=== PATIENT | female | born 1995 | race Caucasian/White ===

== ENCOUNTER 2025-07-04 09:23 | Emergency (ER) | payer MEDICAID, SELFPAY ==
[2025-07-04 09:41] VITALS: BP 117/79; PULSE 67; RESP 18; TEMP 36.4; O2SAT 96
--- NOTE | 2025-07-04 09:45 | XR_ITS ---
Examination: CT abdomen and pelvis without contrast. Coronal 3-D reconstructions. Sagittal 2-D reconstructions. Date and time of exam:July 04, 2025 1222 hours INDICATIONS: Dysuria right-sided flank pain nausea beginning 2 days ago. CTDI: vol (mGy): 6.51 DLP: (mGycm): 15 Technique: Axial images of the abdomen have been obtained, 3 mm slice thickness Intravenous contrast material has not been administered. Low dose protocols were performed. One or more of the following dose reduction techniques were used; automated exposure control, adjustment of the mA and/or KV according to patient size, use of iterative reconstruction technique. Findings: No focal liver or splenic lesions Cholelithiasis Gallbladder wall appears mildly thickened. No pancreatic or adrenal mass Mild right hydronephrosis 4.6 mm right ureterovesical junction calculus No left hydronephrosis No bowel obstruction Normal appendix No bladder mass IMPRESSION: Cholelithiasis, recommend hepatobiliary sonography follow-up Mild right hydronephrosis, 4.6 mm right ureterovesical junction calculus
--- NOTE | 2025-07-04 09:45 | PD.EDRME ---
Rapid Medical Screening Exam RME Arrival date/time: 07/04/25 09:23 30-year-old female with no known medical history presents to the emergency room with a chief complaint of dysuria, right-sided flank pain, nausea x 2 days I have greeted and performed a focused initial assessment of this patient. A comprehensive ED assessment and evaluation of the patient, analysis of all test results, and completion of the medical decision making process will be conducted by additional ED providers. Chief Complaint: General Adult/Misc Complain Time Seen by Provider: 07/04/25 09:32 Vital signs: Vital Signs Temperature 97.6 F 07/04/25 09:41 Pulse Rate 67 07/04/25 09:41 Respiratory Rate 18 07/04/25 09:41 Blood Pressure 117/79 07/04/25 09:41 Pulse Oximetry (%) 96 07/04/25 09:41 Oxygen Delivery Method Room Air 07/04/25 09:41 Vital signs reviewed by provider: Yes
[2025-07-04 10:18] LABS: Basophils # (Auto) 0.1 Thou/mm3 (0.0-0.2); Basophils % (Auto) 0 % (0-2.5); Eosinophils # (Auto) 0.0 Thou/mm3 (0.0-0.5); Eosinophils % (Auto) 0 % (0-10); Hematocrit 34.0 % (36.0-46.0); Hemoglobin 11.0 g/dL (12.0-16.0); Immature Granulocytes Auto 0.04 Thou/mm3 (0.00-0.00); Lymphocytes # (Auto) 1.1 Thou/mm3 (1.0-4.8); Lymphocytes % (Auto) 8 % (10-50); Mean Corpuscular HGB Conc 32.4 g/dl (31.0-37.0); Mean Corpuscular Hemoglobin 28.6 pg (25.0-35.0); Mean Corpuscular Volume 88 fL (80-100); Monocytes # (Auto) 0.6 Thou/mm3 (0.0-0.8); Monocytes % (Auto) 5 % (0-12); Neutrophils # (Auto) 11.4 Thou/mm3 (1.8-7.7); Neutrophils % (Auto) 86 % (37-80); Nucleated Red Blood Cell # 0.00 Thou/mm3 (0.00-0.00); Nucleated Red Blood Cell % 0 /100 WBC (0); Platelet Count 229 Thou/mm3 (140-440); RDW Standard Deviation 39.0 fL (36.4-46.3); Red Blood Count 3.85 Miln/mm3 (4.00-5.20); White Blood Count 13.2 Thou/mm3 (3.6-11.0)
[2025-07-04 10:41] LABS: Alanine Aminotransferase 10 U/L (10-49); Albumin, Serum 4.7 gm/dL (3.5-5.0); Albumin/Globulin Ratio 2.2 (1.2-2.2); Alkaline Phosphatase 63 U/L (46-116); Anion Gap 11 (7-16); Aspartate Amino Transferase 16 U/L (0-34); BUN/Creatinine Ratio 18 Ratio (12-20); Bilirubin,Total 0.7 mg/dL (0.3-1.2); Blood Urea Nitrogen 9 mg/dL (9-23); Calcium 9.4 mg/dL (8.3-10.6); Calcium (Corrected) 9.4 mg/dL (8.5-10.1); Carbon Dioxide 25.4 mMol/L (20.0-31.0); Chloride 107 mMol/L (98-107); Creatinine (Component) 0.5 mg/dL (0.6-1.3); Estimated Creatinine Clearance 146.9 mL/min (>60); Globulin 2.1 gm/dL (2.3-3.5); Glucose 120 mg/dL (74-106); Lipase 23 U/L (12-53); Osmolality,Calculated 284 (275-295); Potassium 3.6 mMol/L (3.4-5.1); Sodium 143 mMol/L (136-145); Total Protein 6.8 gm/dL (5.7-8.2); eGFR > 60 See Note
[2025-07-04 11:04] LABS: Collection Type, Urine Clean Catch; WBC,Urine 0 /hpf (0-5)
--- NOTE | 2025-07-04 11:18 | EDNOTE_ITS ---
ED General RME/HPI General Chief complaint: General Adult/Misc Complain Stated complaint: R) FLANK PAIN Time Seen by Provider: 07/04/25 09:32 Arrival date/time: 07/04/25 09:23 CC: Right flank pain nausea vomiting diarrhea HPI abrupt onset 930 this morning no prior history of similar events denies any fever, no allergies no medicines. Took Aleve without relief. 2 episodes of diarrhea 2 episodes of vomiting currently nauseated but no active vomiting. RME / HPI RME / HPI narrative: 07/04/25 09:23 30-year-old female with no known medical history presents to the emergency room with a chief complaint of dysuria, right-sided flank pain, nausea x 2 days I have greeted and performed a focused initial assessment of this patient. A comprehensive ED assessment and evaluation of the patient, analysis of all test results, and completion of the medical decision making process will be conducted by additional ED providers. Related Data Home Medications ?Medication ?Instructions ?Recorded ?Confirmed prenat.vits,hossein,[id number] 1 tab PO QDAY 04/18/19 04/20/21 Previous Rx's ?Medication ?Instructions ?Recorded docusate sodium 100 mg capsule 100 mg PO BID postpartu m 30 days 06/20/21 (Colace) #60 caps ibuprofen 600 mg tablet (IBU) 600 mg PO Q6H PRN fever or pain 30 06/20/21 days #60 tabs ketorolac 10 mg tablet 10 mg PO Q8H #10 tabs Allergies Allergy/AdvReac Type Severity Reaction Status Date / Time No Known Allergies Allergy Verified 04/20/21 12:06 Review of Systems Review of Systems Narrative Review of Systems: GEN: No fever, no chills, no weight loss EYES: No discharge, no visual changes, no pain HEENT: No ear pain, no congestion, no sore throat PULM: No shortness of breath, no cough, no congestion CV: No chest pain, no dyspnea on exertion, no palpitations GI: + nausea, + vomiting, + diarrhea, + pain, no constipation : No frequency, no urgency, no dysuria MUSC/SKEL: No joint pain, no back pain SKIN: No rash PSYCH: No hallucinations, no depression HEME/LYMPH: No easy bleeding or bruising tendencies NEURO: No weakness, no headache Past Medical History Past Medical History NEUROLOGIC: Negative Neurological Disorders or Seizures CARDIAC: Negative Cardiac Disorders or Congestive Heart Failure RESPIRATORY: Negative Chronic Obstructive Pulmonary Disease (COPD) GASTROINTESTINAL: Negative Gastrointestinal Disorders or Hepatitis GENITOURINARY: Negative Genitourinary Disorders or Renal Disease MUSCULOSKELETAL: Negative Musculoskeletal Disorders ENDOCRINE: Negative Endocrine Disorders, Diabetes Mellitus Type 1 or Diabetes Mellitus Type 2 HEMATOLOGIC: Negative Blood Disorders PSYCHO/SOCIAL: Positive Anxiety OTHER HISTORY: Positive Hospitalization; Negative Autoimmune Disease, Blood Transfusions, Anesthesia Reactions, Human Immunodeficiency Virus (HIV), Chicken Pox, Measles, Mumps, Rubella ([place] Measles), Pertussis or Clostridium Difficile Family History FAMILY HISTORY: Positive Family Psychiatric Problems, Family Cancer and Family Surgery; Negative Family Respiratory Disorders, Family Cardiac Disorders, Family Gastrointestinal Problems or Family Anesthesia Reaction Surgical History SURGICAL: Positive Section Social History SMOKING STATUS: Never smoker ED Exam Narrative Physical exam: [General: Obese in mild discomfort but not in any acute distress Head normocephalic HEENT: Within acceptable limits Neck is supple nontender Chest equal chest rise nontender to palpation Respiratory: Clear to auscultation no wheezes crackles or rubs CV: Rate rhythm is regular no murmurs rubs or clicks Abdomen is distended secondary to body habitus soft nontender no masses positive bowel sounds all 4 quadrants Back: No right or left CVA tenderness no spinous process tenderness from cervical spine thoracic and lumbar spine Skin: Intact no petechiae rash induration ulceration or crepitus Extremities: Moving all extremity against resistance cap refill less than 2 seconds neurosensory intact Neuro: Awake alert oriented x3 Glascow coma 15 no focal deficits] Course Quality Measures none Orders Category Date Time Status Saline [Insert IV] NOW Care 07/04/25 11:[address] abdomen pelvis wo con Stat Exams 07/04/25 09:45 Completed CBC Stat Lab 07/04/25 10:05 Completed CMP [Comprehensive Metabolic Panel] Stat Lab 07/04/25 10:05 Completed HCG Qualitative,Urine Stat Lab 07/04/25 11:00 Completed Lipase Stat Lab 07/04/25 10:05 Completed UA [Urinalysis] Stat Lab 07/04/25 11:00 Completed Urine Culture Stat Lab 07/04/25 11:00 Received Ketorolac Inj [Toradol Inj] Med 07/04/25 11:14 Discontinued 15 mg IVP X1 ONE Ondansetron Inj [Zofran Inj] Med 07/04/25 11:14 Discontinued 4 mg IVP X1 ONE Sodium Chloride 0.9% 1000 ml [Ns] 1,000 ml Med 07/04/25 11:14 Discontinued IV 999 mls/hr Vital Signs Vital signs: Vital Signs Temperature 97.6 F 07/04/25 09:41 Pulse Rate 67 07/04/25 09:41 Respiratory Rate 18 07/04/25 09:41 Blood Pressure 117/79 07/04/25 09:41 Pulse Oximetry (%) 96 07/04/25 09:41 Oxygen Delivery Method Room Air 07/04/25 09:41 Discharge Plan Plan Patient Disposition: HOME (Self Care) Prescriptions/Referrals Prescriptions/Med Rec: New ketorolac 10 mg tablet 10 mg PO Q8H Qty: 10 0RF Rx Instructions: maximum total duration of 5 days from all oral, intranasal, or parenteral formulations No Action prenat.vits,hossein,[id number] tablet 1 tab PO QDAY docusate sodium [Colace] 100 mg capsule 100 mg PO BID MDD 2 30 Days Qty: 60 1RF ibuprofen [IBU] 600 mg tablet 600 mg PO Q6H MDD 4 PRN (Reason: fever or pain) 30 Days Qty: 60 1RF Referrals: Celso Munson MD [Physician, Nephrology] - In 1 week Bert Jerome MD [Primary Care Provider, Family Practice] - In 1 week Problem List Clinical Impression: Urolithiasis, Hydroureter Patient/Caregiver Discharge Instructions Education Materials: ED Kidney Stone Undescended No ... Additional Instructions: Take the medication as prescribed drink plenty of water, follow-up with urologist if there is worsening of symptoms return to the emergency room for reevaluation. Print Language: Upper Sorbian Stand Alone Forms: Charmaine Award Info., Patient Portal Info Letter, Work/School Release PA/G[employer]OLINE TRUCK OPERATOR Supervising Physician PA/GASOLINE TRUCK OPERATOR Supervising Physician: Olaf Mosley ENP [facility] Clinical Information Provided by patient Medical Records Reviewed [facility] Meds/Rx Considered, not Ordered None Labs/Rad/Tests considered, not Ordered None Chronic Illness/Social Conditions which may negatively complicate care or outcome(s)-explain: None or not applicable EKG EKG not done Lab Interpretation Lab(s) interpretation(s): CBC shows a mild leukocytosis of 13.2 H&H of 11.0 and 34.0 respectively. No thrombocytopenia CMP shows no significant electrolyte imbalances glucose mildly elevated 120 no transaminitis or T. bili elevation. Imaging Provider imaging interpretation(s): CT shows the patient has a 4.5 mm stone in the right UVJ with mild hydro-. Radiology reports / interpretation(s): Patient got considerable relief of the ketorolac at this time comfortable discharging her pain home she can follow-up with nephrology take the medicines drink plenty of water. Medication Administration(s) Medication Administration History Discontinued Medications Sodium Chloride (Ns) 1,000 mls @ 999 mls/hr IV .Q1H1M ONE Stop: 07/04/25 12:14 Last Infusion: 07/04/25 12:32 Dose: Infused Documented By: Admin: 07/04/25 11:31 Dose: 999 mls/hr Documented By: EF Ketorolac Tromethamine (Ketorolac Inj 30 Mg/Ml Vial) 15 mg IVP X1 ONE Stop: 07/04/25 11:15 Last Admin: 07/04/25 11:48 Dose: 15 mg Documented By: MAUDE Ondansetron HCl (Ondansetron Inj 2 Mg/Ml Inj 2 Ml) 4 mg IVP X1 ONE; Protocol Stop: 07/04/25 11:15 Last Admin: 07/04/25 11:31 Dose: 4 mg Documented By: EF
[2025-07-04] MEDS: SODIUM CHLORIDE 0.9% 1000 ML 1,000 ML 999 ML IV (11:31)
[2025-07-04] MEDS: ONDANSETRON INJ 2 MG/ML INJ 2 ML 4 MG IVP (11:31)
[2025-07-04 11:36] LABS: Amorphous Crystals,Urine Present (Absent); Bacteria,Urine 1+; Bilirubin,Urine Negative (Negative); Blood,Urine 2+ (Negative); Clarity,Urine Turbid (Clear/Hazy); Color,Urine Yellow (Lt Yel-Yel); Glucose, Urine Negative (Negative); Ketones,Urine Negative (Negative); Leukocyte Esterase,Urine Positive (Negative); Nitrite,Urine Negative (Negative); PH,Urine 7.0 (5.0-7.0); Protein,Urine 1+ (Neg - Trace); RBC,Urine 2 /hpf (0-3); Specific Gravity,Urine 1.023 (1.001-1.035); Squamous Epithelial Cell,Urine 6 /hpf (0-5); Urobilinogen,Urine Negative mg/dL (0.0-1.0)
[2025-07-04 11:41] LABS: HCG Qualitative,Urine Negative
[2025-07-04] MEDS: KETOROLAC INJ 30 MG/ML VIAL 15 MG IVP (11:48)
[2025-07-04 13:52] VITALS: BP 95/62; PULSE 66; RESP 16; O2SAT 100
== END 2025-07-04 13:53 | disposition home or self-care (01) ==
PROVIDERS: Nurse Practitioner Family; Emergency Provider Emergency Medicine; PCP Family Medicine
DX: N13.2 Hydronephrosis with renal and ureteral calculous obstruction (principal)
CPT/HCPCS: 36415; 74176; 80053; 81001; 81025; 83690; 85025; 87077; 87086; 87186; 96361; 96374; 96375; 99283; J1885; J2405; J7030

== ENCOUNTER → 2025-09-26 | Outpatient (CLI) | payer MEDICAID, SELFPAY ==
--- NOTE | 2025-09-26 16:22 | XR_ITS ---
Examination: Abdomen AP single view Technique: AP portable supine abdomen, single view Exam date and time: September 26, 2025, 1639 hours INDICATIONS: Abdominal pain beginning 5 months ago FINDINGS: Moderate stool throughout the colon No renal or ureteral calculi Osseous structures are intact IMPRESSION: No renal or ureteral calculi
== END | disposition home or self-care (01) ==
LOC: CDIM 16:12
PROVIDERS: PCP Family Medicine; Referring Provider Surgery; Visit Provider Surgery
DX: N20.1 Calculus of ureter (principal)
CPT/HCPCS: 74018